=== PATIENT | female | born 1950 | race African-American/Black ===

== ENCOUNTER → 2021-10-04 | Outpatient (CLI) | payer OTHER, MEDICARE ==
[~2021-10-04] MED LIST: HYDROCHLOROTHIA25 M1 PO; MULTI VITAMIN1 EACH PO; NORVASC10 MG PO; TURMERIC500 M2 PO; VITAMIN D325 MC2 PO
== END ==
LOC: LAB 11:08
PROVIDERS: ATTEND Student in an Organized Health Care Education/Training Program
DX: U07.1 COVID-19 (principal)